=== PATIENT | male | born 1975 | race Asian ===

== ENCOUNTER 2024-05-11 08:14 | Outpatient (AMB) | payer OTHER, SELFPAY ==
[2024-05-11 08:18] VITALS: BP 122/68; PULSE 77; O2SAT 99; BMI 31.6
--- NOTE | 2024-05-11 08:18 | A.OFFVIS_ITS ---
Vital Signs 05/11/24 08:18 Height 5 ft 8 in Weight 207 lb 14.334 oz BMI 31.6 BP 122/68 Blood Pressure Location Lt brachial Position Sitting Pulse 77 Pulse Source Pulse Oximeter Pulse Oximetry (%) 99 Oxygen Delivery Method Room Air Intake Visit Reasons: Psoriatic Arthritis Intake Note: Patient presents for follow up on psoriatic arthritis today. Allergies lisinopril Adverse Reaction (Mild, Verified 05/11/24 08:24) Cough HPI HPI Psoriatic Arthritis: Details: He feels well. He has not been on methotrexate since last visit and they 6 months ago. He has psoriatic arthritis patch on his knees. He still does not have any psoriasis on his elbows as he previously did. Morning stiffness is a half an hour. He has not lost weight. He has not been working out at the gym. Denies new joint swelling. He has assist right 2nd DIPJ. [facility] Medical History (Updated 05/11/24 @ 22:52 by Aurelio Lopez MD) Psoriatic arthritis Hypertension Family History (Updated 05/11/24 @ 08:26 by Charisma Escamilla CMA) Father Diabetes Hypertension Mother Hypertension Review of Systems Const All systems reviewed & are unremarkable except as noted in HPI and below Physical Exam Vital Signs: Last Vital Signs Pulse 77 05/11/24 08:18 BP 122/68 05/11/24 08:18 Pulse Ox 99 05/11/24 08:18 Oxygen Delivery Method Room Air 05/11/24 08:18 BMI result Body Mass Index 31.6 Const Other: General: Comfortable CVS: RRR Respiratory: clear to auscultation bilaterally. Good respiratory effort Skin: Plaque psoriasis bilateral knees right knee worse than left MSK: No synovitis of any joint. Heberden's node present. Tender right 2nd PIP with Heberden nodes and synovial cyst present. Good range of motion of upper extremities and lower extremities. Assessment & Plan Assessment & Plan (1) Psoriatic arthritis: Comment: He self-discontinued methotrexate. Subsequently, he has developed plaque psoriasis extensor surface of bilateral knees. I recommend that he resume methotrexate for maintenance treatment for both psoriasis and psoriatic arthritis and to prevent progression of psoriatic arthritis. Patient agrees with plan. Code(s): L40.50 - Arthropathic psoriasis, unspecified Category: Medical Plan: Labs for disease and drug monitoring on high-risk medication ordered After lab results are back, we will send prescription for methotrexate 20 mg once weekly and folic acid 1 mg daily. He was previously on methotrexate 22.5 mg once weekly. [facility] Return to clinic in 3 months Encouraged weight loss and regular exercise program (2) Other penitentiary (current) drug therapy: Code(s): Z79.899 - Other dedicated intermodal truck driver (current) drug therapy Category: Medical Plan: See above Orders: Orders Aspartate Amino Transferase Today Z79.60 - correction (current) use of unspecified immunomodulators and immunosuppressants Complete Blood Count Auto Diff Today Z79.60 - extermination inspector (current) use of unspecified immunomodulators and immunosuppressants Hepatitis B,C Profile Today L40.50 - Arthropathic psoriasis, unspecified, Z79.899 - Other penitentiary (current) drug therapy T Spot TB Today L40.50 - Arthropathic psoriasis, unspecified, Z79.899 - Other dedicated intermodal truck driver (current) drug therapy Erythrocyte Sedimentation Rate Today L40.50 - Arthropathic psoriasis, unspecified, Z79.899 - Other dedicated intermodal truck driver (current) drug therapy C Reactive Protein Today L40.50 - Arthropathic psoriasis, unspecified, Z79.899 - Other penitentiary (current) drug therapy Alanine Aminotransferase Today Z79.60 - extermination inspector (current) use of unspecified immunomodulators and immunosuppressants Creatinine Today Z79.60 - correction (current) use of unspecified immunomodulators and immunosuppressants Coding Level of Care Code Est Pt Level 4 (23865) Complex EM visit Add On G2211 Diagnoses Psoriatic arthritis L40.50 Other penitentiary (current) drug therapy Z79.899
== END 2024-05-11 09:04 | disposition home or self-care (01) ==
PROVIDERS: PCP Internal Medicine; Visit Provider Internal Medicine Rheumatology
DX: L40.50 Arthropathic psoriasis, unspecified (principal); Z79.899 Other long term (current) drug therapy
CPT/HCPCS: 99214

== ENCOUNTER 2024-05-11 10:11 | Outpatient (REF) | payer OTHER, SELFPAY ==
[2024-05-11 14:57] LABS: MANUAL DIFF FLAG NO
[2024-05-11 15:04] LABS: Basophils Absolute Auto 0.1 X10*3/uL (0.0-0.2); Eosinophils Absolute Auto 0.2 X10*3/uL (0.0-0.4); Eosinophils Percent Auto 3.9 % (0-4); Hematocrit 46.5 % (42.0-52.0); Hemoglobin 15.5 g/dl (14.0-18.0); Imm Gran Abs Auto 0.02 X10*3/uL (0.00-0.03); Imm Gran Pct Auto 0.4 % (0.0-0.4); Lymphocytes Absolute Auto 1.6 X10*3/uL (1.2-4.9); Lymphocytes Percent Auto 30.3 % (20-40); Mean Corpuscular HGB Conc 33.3 g/dl (31.0-36.0); Mean Corpuscular Hemoglobin 30.3 pg (27.0-33.0); Mean Corpuscular Volume 90.8 fL (80.0-98.0); Mean Platelet Volume 9.5 fL (9.4-12.4); Monocytes Absolute Auto 0.3 X10*3/uL (0.1-1.2); Monocytes Percent Auto 6.7 % (2-11); Neutrophils Percent Auto 57.7 % (45-73); Platelet Count 218 X10*3/uL (160-400); Red Blood Count 5.12 X10*6/uL (4.60-5.80); Red Cell Distribution Width 12.7 % (11.0-16.0); White Blood Count 5.1 X10*3/uL (4.8-10.8)
[2024-05-11 15:23] LABS: Alanine Aminotransferase 33 U/L (0-40); Aspartate Amino Transferase 36 U/L (5-37); C Reactive Protein 0.12 mg/dL (< or = 0.50); Estimated Glomerular Filt Rate > 60
[2024-05-11 15:49] LABS: Erythrocyte Sedimentation Rate 3 MM/HR (0-15)
[2024-05-12 04:11] LABS: HBS Num1 6.02 mIU/mL (0-7.99); HBc Num1 0.16 S/CO (0.00-0.79); HBsAGNum1 0.54 S/CO (0.00-0.99); Hepatitis B Core Antibody Nonreactive (Nonreactive); Hepatitis B Surface Antigen Negative (Negative); ~HepC Num1 0.15 S/CO (0.00-0.79); ~Hepatitis B Surface Antibody NONREACTIVE (Nonreactive); ~Hepatitis C Antibody Nonreactive (Nonreactive)
[2024-05-13 18:24] LABS: TS Negative Control Passed; TS Panel A 1; TS Panel B 4; TS Positive Control Passed; TSpotTB Negative (Negative)
== END 2024-05-11 10:12 | disposition home or self-care (01) ==
LOC: HO.WFDLDS 10:11
PROVIDERS: Visit Provider Internal Medicine Rheumatology
DX: L40.50 Arthropathic psoriasis, unspecified (principal); Z79.899 Other long term (current) drug therapy; Z79.60 Long term (current) use of unspecified immunomodulators and immunosuppressants
CPT/HCPCS: 36415; 82565; 84450; 84460; 85025; 85652; 86140; 86481; 86704; 86706; 86803; 87340

== ENCOUNTER 2024-08-04 08:15 | Outpatient (AMB) | payer OTHER, SELFPAY ==
--- NOTE | 2024-08-04 08:16 | A.OFFVIS_ITS ---
Vital Signs 08/04/24 08:18 Height 5 ft 8 in Weight 214 lb 4.629 oz BMI 32.6 BP 122/90 H Blood Pressure Location Lt brachial Position Sitting Pulse 90 Pulse Source Pulse Oximeter Pulse Oximetry (%) 99 Oxygen Delivery Method Room Air Intake Visit Reasons: Follow Up 3mo Intake Note: Patient presents for follow up on psoriatic arthritis today. Allergies lisinopril Adverse Reaction (Mild, Verified 05/11/24 08:24) Cough HPI HPI Follow Up 3mo: Details: He is back on methotrexate. He has developed sore throat in the last 2 days and has an ulcer in his mouth. This is the 1st time he has had an ulcer since last visit. He takes folic acid 1 mg daily. In the past he was on 2 mg of folic acid. His joints feel fine. He has chronic swelling of right 3rd finger. He has a new nodule form right 2nd DIPJ hand. [facility] Medical History Psoriatic arthritis Hypertension Family History Father Diabetes Hypertension Mother Hypertension Review of Systems Const All systems reviewed & are unremarkable except as noted in HPI and below Physical Exam Vital Signs: Last Vital Signs Pulse 90 08/04/24 08:18 BP 122/90 H 08/04/24 08:18 Pulse Ox 99 08/04/24 08:18 Oxygen Delivery Method Room Air 08/04/24 08:18 BMI result Body Mass Index 32.6 Const Other: General: Comfortable CVS: RRR Respiratory: clear to auscultation bilaterally. Good respiratory effort Skin: Plaque psoriasis right knee MSK: Mild synovitis right 3rd PIP with tenderness on palpation. Heberden's node present including a new 1 right 2nd DIPJ joint. Normal range of motion of upper extremities and lower extremities. Assessment & Plan Assessment & Plan (1) Psoriatic arthritis: Comment: He is back on methotrexate with improvement of psoriasis. He has recurrent mild swelling right 3rd PIP. He is also symptomatic with sore throat. His son had strep throat last week. I recommend that he seek urgent care evaluation for strep throat. If he is positive for strep throat, he will hold methotrexate this Friday. On methotrexate p.o. he has increase loose stools. I am recommending changing methotrexate back to subcutaneous injection, which patient has done in the past for greater by bioavailability and improved safety profile. Patient agrees with plan. Rheumatology hx: PsA presenting with chronic R 3rd PIP, R knee synovitis, and enthesitis with right lateral epicondylitis and plantar fasciitis.. MTX 01/23/2021-. He had developed oral ulcers, which resolved with folic acid increased to 2 mg daily. He was also changed from po to [place] methotrexate at the [facility] 06/2021. Code(s): L40.50 - Arthropathic psoriasis, unspecified Category: Medical Plan: Labs for disease and drug monitoring on high-risk medication ordered After lab results are back, I will send prescription for methotrexate 20 mg once weekly subcutaneous injection. He will start methotrexate subcutaneous injection after antibiotic treatment and when his symptoms of sore throat resolve if he tests positive for strep throat. Increase folic acid to 2 mg daily Return to clinic in 3 months Encouraged weight loss and regular exercise program (2) Other ad terminal makeup operator (current) drug therapy: Code(s): Z79.899 - Other ad terminal makeup operator (current) drug therapy Category: Medical Plan: See above Orders: Orders Aspartate Amino Transferase Today Z79.60 - [facility] (current) use of unspecified immunomodulators and immunosuppressants Complete Blood Count Auto Diff Today Z79.60 - [facility] (current) use of unspecified immunomodulators and immunosuppressants Alanine Aminotransferase Today Z79.60 - local company intermodal truck driver (current) use of unspecified immunomodulators and immunosuppressants Creatinine Today Z79.60 - local company intermodal truck driver (current) use of unspecified immunomodulators and immunosuppressants Erythrocyte Sedimentation Rate Today Z79.899 - Other ad terminal makeup operator (current) drug therapy C Reactive Protein Today Z79.899 - Other ad terminal makeup operator (current) drug therapy Medications: New methotrexate sodium Dispense day supply 20 mg (0.8 mL) subcut QWEEK 12 weeks 10 mL 0RF syringe with needle (Monoject TB Safety Syringe) As directed Inject weekly with methotrexate 100 ea 0RF Changed From folic acid 1 mg PO DAILY 90 tabs 3RF To folic acid 2 mg (2 x 1 mg) PO DAILY 180 tabs 3RF Coding Level of Care Code Est Pt Level 4 (62589) Complex EM visit Add On G2211 Diagnoses Psoriatic arthritis L40.50 Other ad terminal makeup operator (current) drug therapy Z79.899
[2024-08-04 08:18] VITALS: BP 122/90; PULSE 90; O2SAT 99; BMI 32.6
== END 2024-08-04 09:03 | disposition home or self-care (01) ==
LOC: HO.RHES 08:16
PROVIDERS: PCP Internal Medicine; Visit Provider Internal Medicine Rheumatology
DX: L40.50 Arthropathic psoriasis, unspecified (principal); Z79.899 Other long term (current) drug therapy
CPT/HCPCS: 99214

== ENCOUNTER 2024-08-04 08:15 | Outpatient (REF) | payer OTHER, SELFPAY ==
[2024-08-04 18:11] LABS: MANUAL DIFF FLAG NO
[2024-08-04 18:33] LABS: Basophils Percent Auto 0.7 % (0-2); Eosinophils Absolute Auto 0.2 X10*3/uL (0.0-0.4); Eosinophils Percent Auto 4.3 % (0-4); Hematocrit 45.2 % (42.0-52.0); Hemoglobin 15.3 g/dl (14.0-18.0); Imm Gran Abs Auto 0.03 X10*3/uL (0.00-0.03); Imm Gran Pct Auto 0.5 % (0.0-0.4); Lymphocytes Absolute Auto 1.4 X10*3/uL (1.2-4.9); Lymphocytes Percent Auto 25.4 % (20-40); Mean Corpuscular HGB Conc 33.8 g/dl (31.0-36.0); Mean Corpuscular Hemoglobin 31.3 pg (27.0-33.0); Mean Corpuscular Volume 92.4 fL (80.0-98.0); Mean Platelet Volume 9.3 fL (9.4-12.4); Monocytes Absolute Auto 0.7 X10*3/uL (0.1-1.2); Monocytes Percent Auto 11.7 % (2-11); Neutrophils Absolute Auto 3.2 x10*3/uL (2.0-8.3); Neutrophils Percent Auto 57.4 % (45-73); Platelet Count 240 X10*3/uL (160-400); Red Blood Count 4.89 X10*6/uL (4.60-5.80); Red Cell Distribution Width 13.3 % (11.0-16.0); White Blood Count 5.6 X10*3/uL (4.8-10.8)
[2024-08-04 18:36] LABS: Alanine Aminotransferase 49 U/L (0-40); Aspartate Amino Transferase 39 U/L (5-37); C Reactive Protein 0.56 mg/dL (< or = 0.50); Estimated Glomerular Filt Rate > 60
[2024-08-04 19:14] LABS: Erythrocyte Sedimentation Rate 7 MM/HR (0-15)
== END 2024-08-04 08:16 | disposition home or self-care (01) ==
LOC: HO.HKASLDS 08:15
PROVIDERS: PCP Internal Medicine; Visit Provider Internal Medicine Rheumatology
DX: L40.50 Arthropathic psoriasis, unspecified (principal); Z79.899 Other long term (current) drug therapy; Z79.60 Long term (current) use of unspecified immunomodulators and immunosuppressants
CPT/HCPCS: 36415; 82565; 84450; 84460; 85025; 85652; 86140

== ENCOUNTER 2024-12-15 08:23 | Outpatient (REF) | payer OTHER, SELFPAY ==
[2024-12-15 13:57] LABS: MANUAL DIFF FLAG NO
[2024-12-15 14:07] LABS: Hematocrit 43.0 % (42.0-52.0); Hemoglobin 14.8 g/dl (14.0-18.0); Imm Gran Abs Auto 0.02 X10*3/uL (0.00-0.03); Imm Gran Pct Auto 0.3 % (0.0-0.4); Lymphocytes Absolute Auto 1.8 X10*3/uL (1.2-4.9); Mean Corpuscular HGB Conc 34.4 g/dl (31.0-36.0); Mean Corpuscular Hemoglobin 31.8 pg (27.0-33.0); Mean Corpuscular Volume 92.3 fL (80.0-98.0); NRBC Abs Auto 0.000 X10*3/uL (0.0-0.012); NRBC Pct Auto 0.0 /100WBC (0.0-0.2); Platelet Count 258 X10*3/uL (160-400); Red Blood Count 4.66 X10*6/uL (4.60-5.80); White Blood Count 7.2 X10*3/uL (4.8-10.8)
[2024-12-15 14:15] LABS: Alanine Aminotransferase 33 U/L (0-40); Aspartate Amino Transferase 33 U/L (5-37); Estimated Glomerular Filt Rate > 60
== END 2024-12-15 08:24 | disposition home or self-care (01) ==
LOC: HO.HKASLDS 08:23
PROVIDERS: PCP Internal Medicine; Visit Provider Internal Medicine Rheumatology
DX: S46.812A Strain of other muscles, fascia and tendons at shoulder and upper arm level, left arm, initial encounter (principal); L40.50 Arthropathic psoriasis, unspecified; M54.50 Low back pain, unspecified; Z79.899 Other long term (current) drug therapy; Z79.60 Long term (current) use of unspecified immunomodulators and immunosuppressants
CPT/HCPCS: 20600; 36415; 82565; 84450; 84460; 85025; 85652; 86140; J2003; J3300

== ENCOUNTER 2024-12-15 08:23 | Outpatient (AMB) | payer OTHER, SELFPAY ==
[2024-12-15 08:30] VITALS: BP 120/78; PULSE 68; O2SAT 98; BMI 33.9
--- NOTE | 2024-12-15 08:30 | MHC.OFFVIS ---
Vital Signs 12/15/24 08:30 Height 5 ft 8 in Weight 223 lb 4 oz BMI 33.9 BP 120/78 Blood Pressure Location Rt brachial Position Sitting Pulse 68 Pulse Source Pulse Oximeter Pulse Oximetry (%) 98 Oxygen Delivery Method Room Air Intake Visit Reasons: follow up Intake Note: Patient presents for follow up on psoriatic arthritis today. Accompanied by: Self / Same As Patient Allergies lisinopril Adverse Reaction (Mild, Verified 12/15/24 08:31) Cough HPI HPI follow up: Details: Back pain in the morning with stiffness. Pain with bending. Lasts 30 minutes. Reolves with movement. New right DIP nodule 2nd finger. He had an episode of left neck pain for 1 week. Resolved. R knee PsO patch. MS 30 minutes. He is unable stretch out his right 3rd finger. [facility] Medical History Psoriatic arthritis Hypertension Family History Father Diabetes Hypertension Mother Hypertension Physical Exam Vital Signs: Last Vital Signs Pulse 68 12/15/24 08:30 BP 120/78 12/15/24 08:30 Pulse Ox 98 12/15/24 08:30 Oxygen Delivery Method Room Air 12/15/24 08:30 BMI result Body Mass Index 33.9 Const Other: General: Comfortable CVS: RRR Respiratory: clear to auscultation bilaterally. Good respiratory effort Skin: Plaque psoriasis right knee MSK: Mild synovitis right 3rd PIP without tenderness on palpation with reduced extension. Heberden's nodes present. Normal range of motion of upper extremities and lower extremities. No tenderness of lumbar spine. Limited full lumbar flexion. Office Procedures AMB Joint Injection/Aspiration Joint Injection/Aspiration Details: Right 3rd PIP Prep: site was prepped using aseptic technique Injected: 10 mg of, Kenalog, with 0.25 mL of and 1% plain lidocaine Procedure: Informed verbal consent was obtained. The patient tolerated the procedure well. Postprocedure protocol was discussed with patient. Coding - Small Joint Procedure code (CPT) selection complete Office Meds lidocaine (PF) 10 mg/mL (1 %) injection solution Performing Provider: Aurelio Lopez MD Performing Location: [facility] [facility] Administered by: Gabriela Bullock RN on 12/15/24 09:02 Dose Route Admin Location Dispensed Lot Number Expiration Date [facility] [employer] 2.5 mg Infiltration 2 mL [id number] 10/09/26 66281-664-46 [employer] Total Dispensed Waste 2 mL 87.5 % Kenalog 40 mg/mL suspension for injection Performing Provider: Aurelio Lopez MD Performing Location: [facility] [place] [facility] Administered by: Gabriela Bullock RN on 12/15/24 09:02 Dose Route Admin Location Dispensed Lot Number Expiration Date [facility] [employer] 10 mg intra-articular 1 mL [id number] 11/08/25 [address]-3 [employer] Total Dispensed Waste 1 mL 75 % Assessment & Plan Assessment & Plan (1) Psoriatic arthritis: Comment: Inflammatory arthritis and psoriasis is stable on methotrexate. Bowel movements have now become normal with change of methotrexate PO to subcutaneous injection. He continues to have mild synovitis right 3rd PIP. He is agreeable to try intra-articular cortisone injection. I am avoiding prednisone course due to rare risk of palmar plantar pustulosis in patients with psoriasis with prednisone use. He is experiencing morning stiffness and upper lumbar spinous process pain in the morning. I will further evaluate with x-ray to determine etiology of lumbar back pain ? Degenerative joint disease versus axial inflammatory arthritis Rheumatology hx: PsA presenting with chronic R 3rd PIP, R knee synovitis, and enthesitis with right lateral epicondylitis and plantar fasciitis.. MTX 01/23/2021-. He had developed oral ulcers, which resolved with folic acid increased to 2 mg daily. He was also changed from po to SC methotrexate at the [facility] 06/2021. PO to SC MTX change 09/2024- resolved loose stools. Code(s): L40.50 - Arthropathic psoriasis, unspecified Category: Medical Plan: Labs for disease and drug monitoring on high-risk medication ordered Continue methotrexate 20 mg once weekly subcutaneous injection Reduced folic acid from 2 mg daily to 1 mg daily X-ray bilateral hands ordered to evaluate for progression of arthritis X-ray L-spine ordered HLA B27 ordered Return to clinic in 3 months (2) Other terminal operations supervisor (current) drug therapy: Code(s): Z79.899 - Other custodial (current) drug therapy Category: Medical Plan: See above (3) Low back pain: Code(s): M54.50 - Low back pain, unspecified Category: Medical Plan: See above (4) Strain of left trapezius muscle: Comment: Resolved. Patient localizes pain to his left trapezius, which occurred for 1 week. We discussed conservative management if it reoccurs. Code(s): S46.812A - Strain of other muscles, fascia and tendons at shoulder and upper arm level, left arm, initial encounter Category: Medical Plan: Apply lidocaine patch Apply heat to back If pain does not resolved after 1-2 weeks, he will call office for PT Return to clinic in 3 months Orders: Orders Complete Blood Count Auto Diff Today Z79.899 - Other terminal operations supervisor (current) drug therapy Aspartate Amino Transferase Today Z79.899 - Other terminal operations supervisor (current) drug therapy XR lumbar spine 2-3V Today M54.50 - Low back pain, unspecified Alanine Aminotransferase Today Z79.899 - Other terminal operations supervisor (current) drug therapy Creatinine Today Z79.899 - Other terminal operations supervisor (current) drug therapy C Reactive Protein Today Z79.899 - Other terminal operations supervisor (current) drug therapy Erythrocyte Sedimentation Rate Today Z79.899 - Other terminal operations supervisor (current) drug therapy XR Hand Bilat min 3v Today L40.50 - Arthropathic psoriasis, unspecified AMB Joint Injection/Aspiration Today L40.50 - Arthropathic psoriasis, unspecified HLA B27 Today L40.50 - Arthropathic psoriasis, unspecified, M54.50 - Low back pain, unspecified, Z79.899 - Other terminal operations supervisor (current) drug therapy Medications: Changed From folic acid 2 mg (2 x 1 mg) PO DAILY 180 tabs 3RF To folic acid Reduced dose 1 mg PO DAILY 90 tabs 3RF Coding Level of Care Code Est Pt Level 4 (22512) Complex EM visit Add On G2211 Diagnoses Psoriatic arthritis L40.50 Other custodial (current) drug therapy Z79.899 Low back pain M54.50 Strain of left trapezius muscle S46.812A CPT Codes Coding - - Small joint: - Small Joint ([id number])
== END 2024-12-15 09:08 | disposition home or self-care (01) ==
LOC: HO.RHES 08:23
PROVIDERS: PCP Internal Medicine; Visit Provider Internal Medicine Rheumatology
DX: L40.50 Arthropathic psoriasis, unspecified (principal); M65.841 Other synovitis and tenosynovitis, right hand; M54.50 Low back pain, unspecified; Z79.899 Other long term (current) drug therapy
CPT/HCPCS: 99214

== ENCOUNTER 2024-12-17 09:48 | Outpatient (REF) | payer OTHER, SELFPAY ==
--- NOTE | ~2024-12-17 | XR_ITS ---
EXAMINATION: XR HAND/WRIST, RIGHT XR HAND/WRIST, LEFT CLINICAL INFORMATION: L40.50 - Arthropathic psoriasis, unspecified COMPARISON: None TECHNIQUE: PA, lateral, and oblique views of the each hand and wrist. FINDINGS: RIGHT HAND/WRIST: The bones and soft tissues are normal. No periarticular osteopenia. No fracture. Alignment is anatomic. Joint spaces are maintained. No erosions or soft tissue calcifications. LEFT HAND/WRIST: The bones and soft tissues are normal. No periarticular osteopenia. No fracture. Alignment is anatomic. Joint spaces are maintained. No erosions or soft tissue calcifications. XR/XR Hand Bilat min 3v IMPRESSION: Normal radiographs of the hands and wrists. No arthropathy evident. Electronically signed by: Curt Zambrano MD 12/17/2024 10:38 AM EDT
--- NOTE | ~2024-12-17 | XR_ITS ---
EXAMINATION: XR LUMBOSACRAL SPINE CLINICAL INFORMATION: M54.50 - Low back pain, unspecified COMPARISON: None available. TECHNIQUE: Three views of the lumbosacral spine. FINDINGS: There is a trace levoconvex scoliosis, possibly positional. There is a normal lumbar lordosis. There is no subluxation. There is no fracture, compression deformity, or suspicious bone lesion. Mild degenerative disc and facet changes noted throughout. Moderate degenerative disc changes at L5-S1. The sacrum is intact. Mild arthritis in bilateral SI joints. No soft tissue abnormalities. XR/XR lumbar spine 2-3V IMPRESSION: Mild degenerative changes of the lumbar spine. No acute bony abnormalities. Electronically signed by: Curt Zambrano MD 12/17/2024 10:36 AM EDT
== END 2024-12-17 09:49 | disposition home or self-care (01) ==
LOC: HO.XRAY 09:48
PROVIDERS: PCP Internal Medicine; Visit Provider Internal Medicine Rheumatology
DX: M54.50 Low back pain, unspecified (principal); L40.50 Arthropathic psoriasis, unspecified
CPT/HCPCS: 72100; 73130

== ENCOUNTER → 2024-12-17 09:54 | Outpatient (BNV) | payer OTHER, SELFPAY | PROVIDERS: PCP Internal Medicine; Visit Provider Radiology Diagnostic Radiology | DX: M51.360 Other intervertebral disc degeneration, lumbar region with discogenic back pain only (principal); L40.50 Arthropathic psoriasis, unspecified | CPT/HCPCS: 72100; 73110; 73130 ==

== ENCOUNTER 2025-03-17 08:00 | Outpatient (REF) | payer OTHER, SELFPAY ==
[2025-03-17 12:59] LABS: MANUAL DIFF FLAG NO
[2025-03-17 13:10] LABS: Hematocrit 44.3 % (42.0-52.0); Hemoglobin 15.1 g/dl (14.0-18.0); Imm Gran Abs Auto 0.02 X10*3/uL (0.00-0.03); Imm Gran Pct Auto 0.4 % (0.0-0.4); Lymphocytes Absolute Auto 1.1 X10*3/uL (1.2-4.9); Mean Corpuscular HGB Conc 34.1 g/dl (31.0-36.0); Mean Corpuscular Hemoglobin 31.9 pg (27.0-33.0); Mean Corpuscular Volume 93.5 fL (80.0-98.0); NRBC Abs Auto 0.000 X10*3/uL (0.0-0.012); NRBC Pct Auto 0.0 /100WBC (0.0-0.2); Platelet Count 250 X10*3/uL (160-400); Red Blood Count 4.74 X10*6/uL (4.60-5.80); White Blood Count 5.0 X10*3/uL (4.8-10.8)
[2025-03-17 13:35] LABS: Alanine Aminotransferase 39 U/L (0-40); Aspartate Amino Transferase 44 U/L (5-37); Estimated Glomerular Filt Rate > 60
[2025-03-22 16:33] LABS: HLA B27 Negative (Negative)
== END 2025-03-17 08:01 | disposition home or self-care (01) ==
LOC: HO.HKASLDS 08:00
PROVIDERS: PCP Internal Medicine; Visit Provider Internal Medicine Rheumatology
DX: L40.50 Arthropathic psoriasis, unspecified (principal); M54.50 Low back pain, unspecified; Z51.81 Encounter for therapeutic drug level monitoring; Z79.899 Other long term (current) drug therapy; Z79.631 Long term (current) use of antimetabolite agent
CPT/HCPCS: 36415; 82565; 84450; 84460; 85025; 85652; 86140; 86812

== ENCOUNTER 2025-03-17 08:00 | Outpatient (AMB) | payer OTHER, SELFPAY ==
[2025-03-17 08:03] VITALS: BP 122/84; PULSE 68; O2SAT 97; BMI 33.2
--- NOTE | 2025-03-17 08:03 | MHC.OFFVIS ---
Vital Signs 03/17/25 08:03 Height 5 ft 8 in Weight 218 lb 7.649 oz BMI 33.2 BP 122/84 Blood Pressure Location Lt brachial Position Sitting Pulse 68 Pulse Source Pulse Oximeter Pulse Oximetry (%) 97 Oxygen Delivery Method Room Air Intake Visit Reasons: 3 months Intake Note: Patient presents for follow up on psoriatic arthritis today. Accompanied by: Self / Same As Patient Allergies lisinopril Adverse Reaction (Mild, Verified 03/17/25 08:03) Cough HPI HPI 3 months: Details: R 3rd finger can straighten. He occasionally wakes up with back pain. It resolves with activity. A month ago he had a gum infection treated with augmentin. [facility] Medical History Psoriatic arthritis Hypertension Family History Father Diabetes Hypertension Mother Hypertension Physical Exam Vital Signs: Last Vital Signs Pulse 68 03/17/25 08:03 BP 122/84 03/17/25 08:03 Pulse Ox 97 03/17/25 08:03 Oxygen Delivery Method Room Air 03/17/25 08:03 BMI result Body Mass Index 33.2 Const Other: General: Comfortable CVS: RRR Respiratory: clear to auscultation bilaterally. Good respiratory effort Skin: Plaque psoriasis right knee MSK: No synovitis. Heberden's nodes present. Normal range of motion of upper extremities and lower extremities. No dactylitis or enthesitis. Assessment & Plan Assessment & Plan (1) Psoriatic arthritis: Comment: Inflammatory arthritis and psoriasis is controlled on monotherapy with methotrexate. Rheumatology hx: PsA presenting with chronic R 3rd PIP, R knee synovitis, and enthesitis with right lateral epicondylitis and plantar fasciitis.. MTX 01/23/2021-. He had developed oral ulcers, which resolved with folic acid increased to 2 mg daily. He was also changed from po to [place] methotrexate at the [facility] 06/2021. PO to SC MTX change 09/2024- resolved loose stools. Code(s): L40.50 - Arthropathic psoriasis, unspecified Category: Medical Plan: Labs for disease and drug monitoring on high-risk medication ordered Continue methotrexate 20 mg once weekly subcutaneous injection Reduced folic acid from 2 mg daily to 1 mg daily HLA B27 ordered Return to clinic in 3 months (2) Other vocational technical education director (current) drug therapy: Code(s): Z79.899 - Other senior living (current) drug therapy Category: Medical Plan: See above (3) Low back pain: Comment: Due to degenerative joint disease. Personally reviewed x-rays with patient. Code(s): M54.50 - Low back pain, unspecified Category: Medical Plan: We discussed importance of maintaining a home exercise program Return to clinic in 3 months Orders: Orders Complete Blood Count Auto Diff Today Z79.899 - Other vocational technical education director (current) drug therapy Aspartate Amino Transferase Today Z79.899 - Other vocational technical education director (current) drug therapy C Reactive Protein Today Z79.899 - Other vocational technical education director (current) drug therapy Alanine Aminotransferase Today Z79.899 - Other vocational technical education director (current) drug therapy Creatinine Today Z79.899 - Other senior living (current) drug therapy Erythrocyte Sedimentation Rate Today Z79.899 - Other senior living (current) drug therapy Medications: Refilled methotrexate sodium Dispense 84 day supply 20 mg (0.8 mL) subcut QWEEK 10 mL 0RF 12 weeks Coding Level of Care Code Est Pt Level 4 (15458) Complex EM visit Add On G2211 Diagnoses Psoriatic arthritis L40.50 Other vocational technical education director (current) drug therapy Z79.899 Low back pain M54.50
== END 2025-03-17 08:30 | disposition home or self-care (01) ==
LOC: HO.RHES 08:01
PROVIDERS: PCP Internal Medicine; Visit Provider Internal Medicine Rheumatology
DX: L40.50 Arthropathic psoriasis, unspecified (principal); Z79.899 Other long term (current) drug therapy; M54.50 Low back pain, unspecified
CPT/HCPCS: 99214; G2211